=== PATIENT | female | born 1970 | race Caucasian/White ===

== ENCOUNTER 2018-03-25 11:08 | Emergency (ER) | payer OTHER ==
[2018-03-25 11:57] VITALS: BP 145/80
--- NOTE | 2018-03-25 12:20 | UC ---
Respiratory Complaint HPI - HPI Summary HPI Summary: 47 year old female presents with 2 week history of nasal congestion, sinus pain , postnasal drip, and occasionally productive cough. Associated with "hot and cold spells", mild SOB, and general malaise. States she was evaluated by her PCP on 03/13/2018 and diagnosed with bronchitis. Treated with course of azithromycin and placed on Pulmicort and albuterol PRN. States symptoms improved for 2-3 days but has since progressively worsened. Denies fever, ear pain, sore throat, chest pain, abdominal pain, nausea, or vomiting. Smokes 3/4- 1 PPD. - History of Current Complaint Chief Complaint: UCRespiratory Stated Complaint: COUGH,HOT/COLD Time Seen by Provider: 03/25/18 12:02 Hx Obtained From: Patient Hx Last Menstrual Period: n/a Onset/Duration: Gradual Onset, Lasting Weeks - 2 Severity Currently: Mild Pain Intensity: 2 Character: Cough: Productive Aggravating Factors: Recumbent Position Alleviating Factors: Bronchodilator Associated Signs And Symptoms: Positive: Chills, URI, Nasal Congestion, Sinus Discomfort. Negative: Fever, Pleuritic Chest Pain, Wheezing, Hemoptysis - Allergies/Home Medications Allergies/Adverse Reactions: Allergies Allergy/AdvReac Type Severity Reaction Status Date / Time Adhesive Tape Allergy RED OOZY Verified 03/25/18 11:53 RASH amoxicillin Allergy See Comment Verified 03/25/18 11:53 codeine Allergy Anaphylatic Verified 03/25/18 11:53 Shock lamotrigine [From Lamictal] Allergy Vomiting Verified 03/25/18 11:53 Latex, Natural Rubber Allergy Rash Verified 03/25/18 11:53 COCONUT Allergy SEVERE Uncoded 03/25/18 11:53 EYES WATERY, DIARRHEA, THROAT CLOSE ENVIRONMENTAL/HAYFEVER Allergy EYES Uncoded 03/25/18 11:53 WATERY, RUNNY NOSE, POST NASAL DRIP ORANGE JUICE, MILK Allergy SEVERE EYE Uncoded 03/25/18 11:53 WATERY, DIARRHEA Home Medications: Home Medications Albuterol HFA INHALER* [Ventolin HFA Inhaler*] 2 puff INH Q6H PRN 03/25/18 [ History Confirmed 03/25/18] Budesonide Flexhaler 180 (NF) [Pulmicort Flexhaler 180 mcg/act (NF)] 180 mcg IN DAILY 03/25/18 [History Confirmed 03/25/18] Furosemide TAB* [Lasix TAB*] 40 mg PO DAILY 03/25/18 [History Confirmed 03/25/18 ] Venlafaxine EXT RELEASE CAP* [Effexor Xr CAP*] 150 mg PO DAILY 03/25/18 [ History Confirmed 03/25/18] clonazePAM TAB(*) [KlonoPIN TAB(*)] 1 mg PO BEDTIME 03/25/18 [History Confirmed 03/25/18] traZODone TAB* [Desyrel TAB*] 100 mg PO BEDTIME 03/25/18 [History Confirmed 04/01] PMH/Surg Hx/FS Hx/Imm Hx Psychological History: Anxiety, Depression - Surgical History Surgical History: Yes Surgery Procedure, Year, and Place: 1989 CSECTION, [facility]. 1990 BILATERAL TUBAL LIGATION, [facility]. 1997 SINUS SURGERY, [facility] [place]. 2002 GASTRIC BYPASS, [facility]. 05/2012 UTERINE ABLATION, [facility]. B/L wrist surgeries, last surgery was 04/[address] Khan. JAMEY DEQUERVAINS, 08/2012, [facility] [place] - Family History Family History: Noncontributory - Social History Occupation: Unemployed Lives: With Family Alcohol Use: Rare Substance Use Type: None Smoking Status (MU): Heavy Every Day Tobacco Smoker Type: Cigarettes Amount Used/How Often: 1 ppd Review of Systems All Other Systems Reviewed And Are Negative: Yes Constitutional: Positive: Negative Skin: Positive: Negative Eyes: Positive: Negative ENT: Positive: Nasal Discharge, Sinus Congestion, Sinus Pain/Tenderness Respiratory: Positive: Shortness Of Breath, Cough Cardiovascular: Positive: Negative Gastrointestinal: Positive: Negative Is Patient Immunocompromised?: No Physical Exam Triage Information Reviewed: Yes Appearance: No Pain Distress, Well-Nourished Vital Signs: Initial Vital Signs Temp 98 F 03/25/18 11:48 Pulse 84 03/25/18 11:48 Resp 18 03/25/18 11:48 BP 145/80 03/25/18 11:48 Pulse Ox 100 03/25/18 11:48 Vital Signs Reviewed: Yes Eyes: Positive: Conjunctiva Clear. Negative: Discharge ENT: Positive: Hearing grossly normal, Nasal congestion, TMs normal, Sinus tenderness - maxillary, Uvula midline. Negative: Pharyngeal erythema, Nasal drainage, Tonsillar swelling, Tonsillar exudate Neck: Positive: Supple, Nontender, No Lymphadenopathy Respiratory: Positive: Lungs clear, Normal breath sounds, No respiratory distress Cardiovascular: Positive: RRR, No Murmur Neurological: Positive: Alert Skin Exam: Normal UC Diagnostic Evaluation - Laboratory O2 Sat by Pulse Oximetry: 100 - Radiology Radiology Interpretation Completed By: ED Physician - MARITA, Radiologist Summary of Radiographic Findings: Patient Name: SAMSON GARVIN Medical Record# : [id number]. Ordering Physician: Mark Barber NP Acct.#: [id number]. : 1970 Age: 47 Sex: F Location: [facility] [place] [place]. Exam Date: 04/01 1212 ADM Status: REG ER. Order Information: CHEST PA LAT 2 VWS. Accession Number: [id number]. CPT: 47495. HISTORY: Cough/SOB. COMPARISONS: April 12, 2007. VIEWS: 4: Frontal dual-energy and lateral views of the chest. FINDINGS: CARDIOMEDIASTINAL SILHOUETTE: The cardiomediastinal silhouette is normal. YANET: The yanet are normal. PLEURA: The costophrenic angles are sharp. No pleural abnormalities are noted. LUNG PARENCHYMA: The lungs are clear. ABDOMEN: The upper abdomen is clear. There is no subphrenic gas. BONES AND SOFT TISSUES: No bone or soft tissue abnormalities are noted. OTHER: None. IMPRESSION: NO ACTIVE CARDIOPULMONARY DISEASE. Respiratory Course/Dx - Course Course Of Treatment: 47 year old female presents with 2 week history of nasal congestion, sinus pain, postnasal drip, and occasionally productive cough that is associated with "hot and cold spells", mild SOB, and general malaise. States she was evaluated by her PCP on 03/13/2018 and diagnosed with bronchitis. Treated with course of azithromycin and placed on Pulmicort and albuterol PRN. She had some improvement in symptoms but over past several days symptoms have progressively worsened. Afebrile. Exam revealed nasal congestion and maxillary sinus tenderness. Bilateral breath sound clear. Chest x-ray shows no acute cardiopulmonary pathology. Will treat for sinusitis with 7 day course of doxycyline. Recommend continued use of inhalers and symptomatic treatment. Will provide Tessalon Perles PRN cough. She is to follow up with PCP in 1 week for recheck. Warning symptoms reviewed. Verbalizes understanding and agrees with POC. - Differential Dx/Diagnosis Differential Diagnosis/HQI/PQRI: Asthma, Lower Resp Infection, Sinusitis Provider Diagnoses: URI, elevated blood pressure reading Discharge - Sign-Out/Discharge Documenting (check all that apply): Patient Departure All imaging exams completed and their final reports reviewed: No Studies - Discharge Plan Condition: Stable Disposition: HOME Prescriptions: Benzonatate CAP* [Tessalon 100 MG CAP*] 100 mg PO TID PRN #30 cap PRN Reason: Cough Doxycycline Hyclate 100 mg PO Q12HR #14 tablet Patient Education Materials: How to Stop Smoking (ED), Sinusitis (ED) Referrals: Julio Hoover [Primary Care Provider] - Additional Instructions: The chest x-ray performed in the the clinic today did not show any evidence of pneumonia. I suspect that your symptoms are from related to the sinusitis. Take doxycycline 1 tab twice a day for 7 days. Continue using the saline rinses at least twice a day. Continue using your Pulmicort and albuterol inhalers as prescribed. Use Tessalon Perles 1 cap every 8 hours as needed for cough. Follow up with your primary car provider within 7 days for recheck of symptoms. Your blood pressure was elevated today and should be rechecked at that time. Seek immediate medical attention in the emergency room if you have fever greater than 100.5 F, have chest pain, increased shortness of breath, or any worsening of symptoms. - Billing Disposition and Condition Condition: STABLE Disposition: Home - Attestation Statements Provider Attestation: Per institutional requirements, I have reviewed the chart, however, I was not consulted specifically or made aware of this patient by the midlevel provider. I did not personally evaluate, interact with , or disposition this patient.
== END 2018-03-25 12:59 | disposition home or self-care (01) ==
LOC: UCCORT 11:08
DX: J06.9 Acute upper respiratory infection, unspecified (principal); R03.0 Elevated blood-pressure reading, without diagnosis of hypertension; Z88.0 Allergy status to penicillin; Z88.5 Allergy status to narcotic agent; Z88.8 Allergy status to other drugs, medicaments and biological substances; F41.8 Other specified anxiety disorders; F17.210 Nicotine dependence, cigarettes, uncomplicated
CPT/HCPCS: 71046; 99212; G0463

== ENCOUNTER 2018-06-27 10:07 | Emergency (ER) | payer OTHER ==
[2018-06-27 12:45] VITALS: BP 145/73
--- NOTE | 2018-06-27 13:00 | UC ---
Respiratory Complaint HPI - HPI Summary HPI Summary: Pt c/o cough, chest and nasal congestion, "chest heaviness", SOB. Pt has hx of asthma, was recently hosptialized for pneumonia nd pt was diagnosed with flu last week. - History of Current Complaint Chief Complaint: UCGeneralIllness Stated Complaint: COUGH Time Seen by Provider: 06/27/18 12:53 Hx Obtained From: Patient Hx Last Menstrual Period: ablation ?: No Onset/Duration: Gradual Onset, Lasting Days, Still Present Timing: Constant Severity Initially: Mild Severity Currently: Moderate Pain Intensity: 5 Character: Cough: Nonproductive Aggravating Factors: Deep Breaths, Recumbent Position Alleviating Factors: Nothing Associated Signs And Symptoms: Positive: Fever, Chills, Wheezing, URI, Nasal Congestion Related History: Seasonal Allergies - Risk Factors Pulmonary Embolism Risk Factors: Smoking Cardiac Risk Factors: Smoking Pseudomonas Risk Factors: Chronic Lung Disease Tuberculosis Risk Factors: Smoking - Allergies/Home Medications Allergies/Adverse Reactions: Allergies Allergy/AdvReac Type Severity Reaction Status Date / Time Adhesive Tape Allergy RED OOZY Verified 06/27/18 12:35 RASH amoxicillin Allergy See Comment Verified 06/27/18 12:35 codeine Allergy Anaphylatic Verified 06/27/18 12:35 Shock lamotrigine [From Lamictal] Allergy Vomiting Verified 06/27/18 12:35 Latex, Natural Rubber Allergy Rash Verified 06/27/18 12:35 COCONUT Allergy SEVERE Uncoded 06/27/18 12:35 EYES WATERY, DIARRHEA, THROAT CLOSE ENVIRONMENTAL/HAYFEVER Allergy EYES Uncoded 06/27/18 12:35 WATERY, RUNNY NOSE, POST NASAL DRIP ORANGE JUICE, MILK Allergy SEVERE EYE Uncoded 06/27/18 12:35 WATERY, DIARRHEA Home Medications: Home Medications Ibuprofen TAB* [Advil TAB*] 800 mg PO Q6H PRN 06/27/18 [History Confirmed ] PMH/Surg Hx/FS Hx/Imm Hx Previously Healthy: Yes Respiratory History: COPD, Asthma - Surgical History Surgical History: Yes Surgery Procedure, Year, and Place: 1989 CSECTION, [facility]. 1990 BILATERAL TUBAL LIGATION, [facility]. 1997 [place], [facility] 2002 GASTRIC BYPASS, [facility]. 05/2012 UTERINE ABLATION, [facility]. B/L wrist surgeries, last surgery was 04/[address] RToac. JAMEY DEQUERVAINS, 08/2012, [facility]. oopherectomy left, partial oopherectomy right - Family History Known Family History: Positive: Hypertension Family History: Noncontributory - Social History Occupation: Employed Full-time Lives: With Family Alcohol Use: Rare Substance Use Type: None Smoking Status (MU): Heavy Every Day Tobacco Smoker Type: Cigarettes Amount Used/How Often: Less than 1/2 ppd Length of Time of Smoking/Using Tobacco: 30 yrs Have You Smoked in the Last Year: Yes Review of Systems All Other Systems Reviewed And Are Negative: Yes Constitutional: Positive: Fever, Chills, Fatigue Skin: Positive: Negative Eyes: Positive: Negative ENT: Positive: Nasal Discharge, Sinus Congestion Respiratory: Positive: Shortness Of Breath, Cough Cardiovascular: Positive: Negative Gastrointestinal: Positive: Negative Genitourinary: Positive: Negative Motor: Positive: Negative Neurovascular: Positive: Negative Musculoskeletal: Positive: Negative Neurological: Positive: Negative Psychological: Positive: Negative Is Patient Immunocompromised?: No Physical Exam Triage Information Reviewed: Yes Appearance: Ill-Appearing Vital Signs: Initial Vital Signs Temp 97.9 F 06/27/18 12:39 Pulse 90 06/27/18 12:39 Resp 16 06/27/18 12:39 BP 145/73 06/27/18 12:39 Pulse Ox 99 06/27/18 12:39 Vital Signs Reviewed: Yes Eye Exam: Normal ENT: Positive: Nasal congestion Dental Exam: Normal Neck exam: Normal Respiratory: Positive: Decreased breath sounds Cardiovascular Exam: Normal Musculoskeletal Exam: Normal Neurological Exam: Normal Psychological Exam: Normal Skin Exam: Normal UC Diagnostic Evaluation - Laboratory O2 Sat by Pulse Oximetry: 99 Respiratory Course/Dx - Differential Dx/Diagnosis Differential Diagnosis/HQI/PQRI: Bronchitis, Exacerbation Of COPD Provider Diagnosis: Bronchitis Discharge - Sign-Out/Discharge Documenting (check all that apply): Patient Departure All imaging exams completed and their final reports reviewed: No Studies - Discharge Plan Condition: Stable Disposition: HOME Prescriptions: Azithromycin TAB* [Zithromax TAB (Z-LEYLA) 250 mg #6 tabs] 2 tab PO .TODAY, THEN 1 DAILY #1 leyla Benzonatate CAP* [Tessalon 100 MG CAP*] 200 mg PO Q8H PRN #30 cap PRN Reason: Cough Codeine Phosphate/Guaifenesin [Codeine/Guaifenesin 100-10 mg/5Ml] 5 ml PO BEDTIME PRN #15 ml MDD 5 PRN Reason: Cough predniSONE TAB* [Deltasone 20 MG TAB*] 20 mg PO DAILY #4 tab Patient Education Materials: Acute Bronchitis (ED), Acute Cough (ED) Referrals: Carmelo [facility],Julio Pickering [Primary Care Provider] - If Needed - Billing Disposition and Condition Condition: STABLE Disposition: Home
== END 2018-06-27 13:20 | disposition home or self-care (01) ==
LOC: UCCORT 10:07
DX: J44.9 Chronic obstructive pulmonary disease, unspecified (principal); R09.81 Nasal congestion; Z91.09 Other allergy status, other than to drugs and biological substances; Z88.0 Allergy status to penicillin; Z88.5 Allergy status to narcotic agent; Z88.8 Allergy status to other drugs, medicaments and biological substances; Z91.040 Latex allergy status; Z91.018 Allergy to other foods; Z91.011 Allergy to milk products
CPT/HCPCS: 99212; G0463

== ENCOUNTER 2018-09-18 13:59 | Emergency (ER) | payer OTHER ==
--- OUTSIDE RECORDS SUMMARY | 2018-09-18 14:37 | XMS REPORT | Continuity of Care Document ---
:1970 Author Organization [facility] Support Name Relationship Address Phone SUSIE AKERS significant other [address] [place] [address] SUSIE AKERS significant other [address] [place] [address] Allergies and Intolerances Code Code Allergy Type Reaction Severity Start End Status System Substance Date Date RXNorm MISC-ENV Allergy to Unknown Active substance 969 (disorder) 723 RXNorm Amoxicillin Propensity Yeast Mild Active to adverse infection 969 reactions to drug (disorder) 748237 RXNorm Lamictal Drug allergy Shortness of Severe Active (disorder) breath, 969 hematemesis 17344 RXNorm Verapamil Drug allergy swelling Moderate Active (disorder) 969 RXNorm Coconut Food allergy Unknown Active (disorder) 969 RXNorm Yeast Food allergy Unknown Active (disorder) 969 RXNorm Milk Food allergy Unknown Active (disorder) 969 504142 RXNorm orange Food allergy Unknown Active (disorder) 969 2670 RXNorm Codeine Drug allergy Shortness of Severe Active (disorder) breath 551 3576585 RXNorm Latex Allergy to Rash Moderate Active substance 014 (disorder) RXNorm Adhesive Tape Drug allergy Swelling Moderate Active (disorder) 014 RXNorm MISC-FOOD Food allergy Unknown 07/30/ Inactive (disorder) 969 2015 Medications RxNorm Medication Dose Route Instructions Start End Status Date Date 543052 Amlodipine 10 MG 10 mg oral orally daily Active Oral Tablet 962543 buspirone 15 mg oral orally 3 times Active hydrochloride 15 per day MG Oral Tablet 717031 Citalopram 20 MG 20 mg oral orally every day Active Oral Tablet Clonidine Oral 0.1 mg oral orally every day Active at bedtime 612451 Furosemide 20 MG 20 mg oral orally every day Active Oral Tablet at noon 205877 Furosemide 40 MG 40 mg oral orally every Active Oral Tablet morning 654901 Hydroxyzine 25 mg oral orally every day Active Hydrochloride 25 at bedtime MG Oral Tablet Multivitamins 1 tab oral orally every day Active 957948 pantoprazole 40 40 mg oral orally every Active MG Delayed morning Release Oral Tablet Prempro 0.625 1 tab oral orally daily Active mg-5 mg Ranitidine Oral 150 mg oral orally 2 times Active per day 578277 Sucralfate 100 10 mL oral orally 4 times Active MG/ML Oral per day (swish in Suspension mouth and swallow; use after food/drink) 386909 Trazodone 100 mg oral orally every day Active Hydrochloride at bedtime 100 MG Oral Tablet 805241 Ursodiol 500 MG 500 mg oral orally 2 times Active Oral Tablet per day 493488 3 ML liraglutide 1.2 mg subcutaneous subcutaneously Completed 6 MG/ML Pen every day Injector 202263 Acetaminophen 1 tab oral orally every 6 07/31/19 Completed 325 MG / hours as needed. 16 Hydrocodone Bitartrate 5 MG Oral Tablet 48423 Ondansetron 4 mg oral orally every 6 Completed hours as needed. (4 days) 529635 quetiapine 50 MG 50 mg oral orally every day Completed Oral Tablet at bedtime Thiamine Oral 100 mg oral orally every day Completed Problems Code Code System Problem Name Start Date End Date Status 93309791 SNOMED-CT Depressive disorder U Active 66087099 SNOMED-CT Anxiety U Active 61586558 SNOMED-CT Sleep apnea U Active 26671931 SNOMED-CT Hypertensive disorder U Active 742627037 SNOMED-CT Anemia U Active 69043423 SNOMED-CT Primary gout U Active 928651342 SNOMED-CT Hypoglycemia U Active ABNORMAL BLEEDING U Active 79520048 SNOMED-CT Urolithiasis U Active Procedures Code Code System Procedure Date SNOMED CT Bilateral ligation and division of fallopian tubes U GASTRIC BYPASS U 77602511 SNOMED CT Nasal septoplasty U 40354995 SNOMED CT section U Results Laboratory Results Order: AMYLASE Specimen Source: Body Site : Legend: (G,H)=High, (GG,HH,CH,#H)=Above High Threshold, (#,L)=Low, (##,CL,#L, LL)=Below Low Threshold, (C,CC,CA,#A,A)=Abnormal LOINC Test Result Flag Range Units Date 1796 1Amylase Ur-cCnc 31 25-125 U/L 08/26/2018 15:50 Performing Lab Footnotes:[facility] - [id number] - [address] [place] [address] KAREN RODRIGUEZLIVED1 Order: CBC DIFF Specimen Source: Body Site: Legend: (G,H)=High, (GG,HH, CH,#H)=Above High Threshold, (#,L)=Low, (##,CL,#L,LL)=Below Low Threshold, (C,CC ,CA,#A,A)=Abnormal LOINC Test Result Flag Range Units Date 6690-2 1WBC # Bld Auto 13.8 H 4.8-10.8 K/uL 08/26/2018 15:50 80688-2 1RBC # Bld 4.87 4.20-5.40 M/uL 08/26/2018 15:50 718-7 1Hgb Bld-mCnc 14.2 12.0-16.0 gm/dL 08/26/2018 15:50 4544-3 1Hct VFr Bld Auto 42.1 36.0-48.0 % 08/26/2018 15:50 787-2 1MCV RBC Auto 86.5 80.0-100.0 fL 08/26/2018 15:50 10664-2 1MCHC RBC-mCnc 33.7 30.0-36.5 % 08/26/2018 15:50 88484-2 1MCH RBC Qn 29.1 27.0-34.0 pg 08/26/2018 15:50 02715-0 1RDW RBC 14.5 11.0-15.0 % 08/26/2018 15:50 777-3 1Platelet # Bld Auto 323 130-450 K/uL 08/26/2018 15:50 99074-2 1PMV Bld Auto 7.6 6.0-12.0 fL 08/26/2018 15:50 751-8 1Neutrophils # Bld Auto 71 37-80 % 08/26/2018 15:50 00919-9 1Lymphocytes NFr Bld 21 10-50 % 08/26/2018 15:50 5905-5 1Monocytes NFr Bld Auto 6 0-12 % 08/26/2018 15:50 27079-3 1Eosinophil # Bld 1 <=8 % 08/26/2018 15:50 704-7 1Basophils # Bld Auto 1 <=3 % 08/26/2018 15:50 21710-7 1Neutrophils # Bld 9.8 H 1.8-8.6 K/uL 08/26/2018 15:50 731-0 1Lymphocytes # Bld Auto 2.9 0.5-5.0 K/uL 08/26/2018 15:50 742-7 1Monocytes # Bld Auto 0.8 0.0-1.3 K/uL 08/26/2018 15:50 57521-7 1Eosinophil # Bld 0.2 0.0-0.9 K/uL 08/26/2018 15:50 704-7 1Basophils # Bld Auto 0.1 0.0-0.3 K/ul 08/26/2018 15:50 Performing Lab Footnotes:[facility] - [id number] - [address] [place] [address] KAREN SOTOD1 Order: COMPREHENSIVE PANEL Specimen Source: Body Site: Legend: (G,H)= High, (GG,HH,CH,#H)=Above High Threshold, (#,L)=Low, (##,CL,#L,LL)=Below Low Threshold, (C,CC,CA,#A,A)=Abnormal LOINC Test Result Flag Range Units Date 2951-2 1Sodium SerPl-sCnc 140 136-145 mmol/L 08/26/2018 15:50 2823-3 1Potassium SerPl-sCnc 3.6 3.5-5.2 mmol/L 08/26/2018 15:50 2075-0 1Chloride SerPl-sCnc 104 100-108 mmol/L 08/26/2018 15:50 2028-9 1CO2 SerPl-sCnc 22 21-32 mmol/L 08/26/2018 15:50 2345-7 1Glucose SerPl-mCnc 92 70-100 mg/dL 08/26/2018 15:50 3094-0 1BUN SerPl-mCnc 14 7-21 mg/dL 08/26/2018 15:50 2160-0 1Creat SerPl-mCnc 1.0 0.6-1.3 mg/dL 08/26/2018 15:50 Interpretive Cassie: 1Normal Kidney Function or Mild Disease - GFR >OR=60 Chronic Kidney Disease - GFR 15-59 Renal Failure - GFR < 15 GFR not calculated on patients under 18 years of age. Calculated (estimated) GFR is based on the MDRD Study equation, which assumes a steady state for creatinine. Estimated GFR may not be appropriate for medication dosing. 12634-0 1Ca-I SerPl-mCnc 9.2 8.5-10.8 mg/dL 08/26/2018 15:50 67883-6 1GFR/BSA.pred SerPl-ArVRat >60 08/26/2018 15:50 46572-7 1Bilirub Bld-mCnc 0.6 0.0-1.2 mg/dL 08/26/2018 15:50 2885-2 1Prot SerPl-mCnc 7.5 6.4-8.2 gm/dL 08/26/2018 15:50 1751-7 1Albumin SerPl-mCnc 4.2 3.4-4.8 gm/dL 08/26/2018 15:50 6768-6 1ALP SerPl-cCnc 99 40-150 U/L 08/26/2018 15:50 1742-6 1ALT SerPl-cCnc 28 0-55 U/L 08/26/2018 15:50 1920-8 1AST SerPl-cCnc 36 5-37 U/L 08/26/2018 15:50 Performing Lab Footnotes:[facility] - [id number] [place] [address] KAREN RODRIGUEZOMDesi Order: LIPASE Specimen Source: Body Site: Legend: (G,H)=High, (GG,HH,CH ,#H)=Above High Threshold, (#,L)=Low, (##,CL,#L,LL)=Below Low Threshold, (C,CC, CA,#A,A)=Abnormal LOINC Test Result Flag Range Units Date 3040-3 1Lipase SerPl-cCnc 27 8-78 U/L 08/26/2018 15:50 Performing Lab Footnotes:[facility] - [id number] [place] [address] KAREN RODRIGUEZOMD1 Order: PT/INR Specimen Source: Body Site: Legend: (G,H)=High, (GG,HH,CH ,#H)=Above High Threshold, (#,L)=Low, (##,CL,#L,LL)=Below Low Threshold, (C,CC, CA,#A,A)=Abnormal LOINC Test Result Flag Range Units Date 5902-2 1PT Time PPP 10.0 9.4-12.4 sec 08/26/2018 15:50 6301-6 1INR PPP 0.9 08/26/2018 15:50 Interpretive Cassie: 1 INR INTERPERTATION 2.0-3.0 THERAPEUTIC MONITORING 2.5-3.5 HEART VALVE REPLACEMENT Performing Lab Footnotes:[facility] - [id number] - [address] [place] [address] KAREN RODRIGUEZOMDesi Order: PTT Specimen Source: Body Site: Legend: (G,H)=High, (GG,HH,CH,#H )=Above High Threshold, (#,L)=Low, (##,CL,#L,LL)=Below Low Threshold, (C,CC,CA,# A,A)=Abnormal LOINC Test Result Flag Range Units Date 3173-2 1aPTT Time Bld 28.9 25.6-36.4 sec 08/26/2018 15:50 Performing Lab Footnotes:[facility] - [id number] - [address] [place] [address] KAREN RODRIGUEZOMD1 Social History Code Code System Social History Description Dates Observed Observation 179188547904776 SNOMED CT Current Smoking Current some day Status smoker UNK AdministrativeGender Sex Assigned At Unknown Vital Signs Code Code System Vitals Value Date 08 LOINC Pulse Rate 67 {beats}/min 08/26/2018 9279-1 LOINC Respiratory Rate 16 /min 08/26/2018 75065-7 LOINC O2% BldC Oximetry 99 % 08/26/2018 8480-6 LOINC BP Systolic 134 mm[Hg] 08/26/2018 8462-4 LOINC BP Diastolic 73 mm[Hg] 08/26/2018 8310-5 LOINC Body Temperature 98.6 [degF] 08/26/2018 8302-2 LOINC Height 62 [in_i] 08/26/2018 31475-9 LOINC Weight 87 kg 08/26/2018 3140-1 LOINC Body surface area Derived from formula 1.88 m2 08/26/2018 09698-6 LOINC BMI (Body Mass Index) 35.2 kg/m2 08/26/2018 Goals Section No data in the system Health Concerns No data in the systemEncounter Diagnosis Date Code Code System Diagnosis Status K29.70 ICD10 GASTRITIS UNS WITHOUT BLEEDING Active Advance Directives *RHIO - CONSENT IS YES Directive Type Effective Date Forepart Rounder Notes Supporting Document Name Address Phone No Directive Type 04/22/2015 Not Specified Not Specified Not Specified None No specified 11:20:00 AM HEALTH CARE PROXY Directive Type Effective Date Forepart Rounder Notes Supporting Document Name Address Phone No Directive 10/13/2014 Not Specified Not Specified Not Specified susie Yes Type specified 6:35:00 AM alejandro [phone] Family History Relationship: Father Health Problem Age At Onset Notes Adult diabetes diet 54 Years Functional Status Code Functional Condition Code System Date Status Independent adls SNOMED CT 08/26/2018 Active Appears well nourished/hydrated SNOMED CT 08/26/2018 Active Immunizations Vaccine Code Code System Vaccine Name Date Status 115 CVX tetanus toxoid, reduced diphtheria 05/15/2011 Completed toxoid, and acellular pertussis vaccine, adsorbed UP TO DATE Completed Medical Equipment No data in the system Mental Status Code Cognitive Condition Code System Date Status [facility] 08/26/2018 Active Mild distress [facility] 08/26/2018 Active 304497718 [facility] 08/26/2018 Active 160563399 Mentally alert [facility] 08/26/2018 Active Assessment and Plan Assessments No data in the systemPlan Of Treatment No data in the systemPending Tests Test Start Date Point of Care URINE DIPSTICK 08/26/2018 Hospital Discharge Instructions No data in the system Reason for Visit Reason for Visit Abdominal Pain
[2018-09-18 14:50] VITALS: BP 145/82
--- NOTE | 2018-09-18 15:15 | ED ---
Respiratory - HPI Summary HPI Summary: 47 yr old with the complaint of sore throat, runny nose, cough, and chills. She has been ill for three days. No NV. She is requesting something for cough because she is having trouble sleeping at night. - History of Current Complaint Chief Complaint: UCGeneralIllness Stated Complaint: COUGH Time Seen by Provider: 09/18/18 14:59 Pain Intensity: 4 - Allergy/Home Medications Allergies/Adverse Reactions: Allergies Allergy/AdvReac Type Severity Reaction Status Date / Time Adhesive Tape Allergy RED OOZY Verified 06/27/18 12:35 RASH amoxicillin Allergy See Comment Verified 06/27/18 12:35 codeine Allergy Anaphylatic Verified 06/27/18 12:35 Shock lamotrigine [From Lamictal] Allergy Vomiting Verified 06/27/18 12:35 Latex, Natural Rubber Allergy Rash Verified 06/27/18 12:35 COCONUT Allergy SEVERE Uncoded 06/27/18 12:35 EYES WATERY, DIARRHEA, THROAT CLOSE ENVIRONMENTAL/HAYFEVER Allergy EYES Uncoded 06/27/18 12:35 WATERY, RUNNY NOSE, POST NASAL DRIP ORANGE JUICE, MILK Allergy SEVERE EYE Uncoded 06/27/18 12:35 WATERY, DIARRHEA Home Medications: Home Medications Estrogen,Con/M-Progest Acet [Prempro] 1 tab PO DAILY 09/18/18 [History Confirmed 09/18/18] Sucralfate TAB* [Carafate*] 1 gm PO QID 09/18/18 [History Confirmed 09/18/18] hydrOXYzine HCL TAB* [Atarax 10 MG TAB*] 10 mg PO DAILY 09/18/18 [History Confirmed 09/18/18] PMH/Surg Hx/FS Hx/Imm Hx Endocrine/Hematology History: Reports: Hx Anemia - LEVEL GOOD PRESENTLY Denies: Hx Diabetes - HYPOGLYCEMIA - NO MED Cardiovascular History: Reports: Hx Hypertension Denies: Other Cardiovascular Problems/Disorders Respiratory History: Denies: Other Respiratory Problems/Disorders GI History: Reports: Other GI Disorders History: Reports: Hx Kidney Infection - 2010, Hx Kidney Stones - 2010 Musculoskeletal History: Reports: Hx Arthritis - BILATERAL KNEES, HIPS Sensory History: Reports: Hx Contacts or Glasses - GLASSES Denies: Hx Hearing Aid Opthamlomology History: Reports: Hx Contacts or Glasses - GLASSES Neurological History: Reports: Hx Headaches - OCCASIONAL Denies: Other Neuro Impairments/Disorders Psychiatric History: Reports: Hx Anxiety - ON MEDICATION, Hx Depression - Surgical History Surgery Procedure, Year, and Place: 1989 CSECTION, [facility]. 1990 BILATERAL TUBAL LIGATION, [facility]. 1997 SINUS SURGERY, [facility] [place]. 2002 GASTRIC BYPASS, [facility]. 05/2012 UTERINE ABLATION, [facility]. B/L wrist surgeries, last surgery was 04/[address] Khan. JAMEY DEQUERVAINS, 08/2012, [facility] [place] oopherectomy left, partial oopherectomy right Hx Anesthesia Reactions: No Infectious Disease History: No Infectious Disease History: Denies: Traveled Outside the [place] in Last 30 Days - Family History Known Family History: Positive: Hypertension Family History: Noncontributory - Social History Occupation: Works From/At Home Alcohol Use: Rare Substance Use Type: Reports: None Smoking Status (MU): Heavy Every Day Tobacco Smoker Type: Cigarettes Amount Used/How Often: Less than 1/2 ppd Length of Time of Smoking/Using Tobacco: 30 yrs Have You Smoked in the Last Year: Yes Review of Systems Positive: Chills Positive: Sore Throat, Nasal Discharge Positive: Cough All Other Systems Reviewed And Are Negative: Yes Physical Exam Triage Information Reviewed: Yes Vital Signs On Initial Exam: Initial Vitals Temp Pulse Resp BP Pulse Ox 98.1 F 88 16 145/82 100 09/18/18 14:44 09/18/18 14:44 09/18/18 14:44 09/18/18 14:44 09/18/18 14:44 Vital Signs Reviewed: Yes Appearance: Positive: Well-Appearing, No Pain Distress ENT: Positive: Pharyngeal erythema, Nasal congestion, Nasal drainage, TMs normal Respiratory/Lung Sounds: Positive: Clear to Auscultation, Breath Sounds Present Cardiovascular: Positive: RRR. Negative: Murmur Abdomen Description: Positive: Nontender Musculoskeletal: Positive: Strength/ROM Intact Neurological: Positive: Sensory/Motor Intact, Alert, Oriented to Person Place, Time, CN Intact II-III, Normal Gait, Speech Normal Psychiatric: Positive: Normal - [place] Coma Scale Best Eye Response: 4 - Spontaneous Best Motor Response: 6 - Obeys Commands Best Verbal Response: 5 - Oriented Coma Scale Total: 15 Diagnostics - Vital Signs Vital Signs Temp Pulse Resp BP Pulse Ox 09/18/18 14:44 98.1 F 88 16 145/82 100 - Laboratory Lab Statement: Any lab studies that have been ordered have been reviewed, and results considered in the medical decision making process. Disposition - Course Course Of Treatment: 47 yr old with URI. Tessalon perles prescribed as requested. FU with PMD for bp check - Diagnoses Provider Diagnoses: Hypertension, Upper respiratory infection Discharge - Sign-Out/Discharge Documenting (check all that apply): Patient Departure All imaging exams completed and their final reports reviewed: No Studies - Discharge Plan Condition: Good Disposition: HOME Prescriptions: Benzonatate CAP* [Tessalon 100 MG CAP*] 100 mg PO TID PRN #[id number] PRN Reason: Cough Patient Education Materials: Upper Respiratory Infection (ED), Hypertension (ED ) Referrals: Carmelo [facility],Julio Pickering [Primary Care Provider] - - Billing Disposition and Condition Condition: GOOD Disposition: Home
== END 2018-09-18 15:20 | disposition home or self-care (01) ==
LOC: UCCORT 13:59
DX: J06.9 Acute upper respiratory infection, unspecified (principal); I10 Essential (primary) hypertension; J30.2 Other seasonal allergic rhinitis; D64.9 Anemia, unspecified; M17.0 Bilateral primary osteoarthritis of knee; M16.0 Bilateral primary osteoarthritis of hip; R51 Headache; F41.9 Anxiety disorder, unspecified; F17.210 Nicotine dependence, cigarettes, uncomplicated; Z91.040 Latex allergy status; Z88.5 Allergy status to narcotic agent; Z88.0 Allergy status to penicillin; Z88.8 Allergy status to other drugs, medicaments and biological substances; Z91.018 Allergy to other foods; Z91.048 Other nonmedicinal substance allergy status
CPT/HCPCS: 99212; G0463